=== PATIENT | female | born 1970 | race Caucasian/White ===

== ENCOUNTER 2017-10-30 08:34 | Emergency (ER) | payer MEDICAID ==
[~2017-10-30] VITALS: Ht 170.2 cm; Wt 77.8 kg
[2017-10-30] MEDS ORDERED: ketorolac trometh inj. 60 MG/2 ML VIAL IM ONE (08:50)
[2017-10-30 09:13] VITALS: BP 114/89
== END 2017-10-30 09:14 | disposition home or self-care (01) ==
LOC: ER 08:35
DX: M16.12 Unilateral primary osteoarthritis, left hip (principal); G89.29 Other chronic pain; Z59.0 Homelessness
CPT/HCPCS: 96372; 99283; J1885